=== PATIENT | female | born 1985 | race Caucasian/White ===

== ENCOUNTER 2017-03-14 13:04 | Inpatient (IN) | payer OTHER ==
[~2017-03-14] VITALS: Ht 160 cm; Wt 93.0 kg
[2017-03-14] MEDS ORDERED: PRENATAL TABLE1 EAC2 PO (14:04)
--- NOTE | 2017-03-14 14:19 | History & Physical ---
General Information and HPI MD Statement: I have seen and personally examined IGNACIO CAMPBELL and documented this H&P. The patient is a 32 year old female at [37] weeks and [1] days gestation who presented with a chief complaint of [OOL AND SROM CLEAR FLUID]. Source of Information: patient, old records Exam Limitations: no limitations History of Present Illness: 32 YO , LMP 06/27/2017 AND BOUCHRA 04/03/2017 PRESENTS 37 1/7 WKS WITH ONSET OF LABOR AND APPARENT SROM CLEAR FLUID. 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 History: none Medical History Blood Transfusion Hx: No Neurological: NONE EENT: NONE Cardiovascular: NONE Respiratory: NONE Gastrointestinal: NONE Hepatic: NONE Renal: H/O KIDNEY STONE- PASSED ON OWN, ALSO ASSOCIATED UTI Musculoskeletal: NONE Psychiatric: NONE Endocrine: NONE Blood Disorders: H/O FE DEF ANEMIA NONE IN Cancer(s): NONE INTRUSION ANALYST/Reproductive: NONE Surgical History Pertinent Surgical History: 2010 APPENDECTOMY Past Family/Social History Family History Relations & Conditions if any Relation not specified for: *No pertinent family history Psychosocial History Where do you live? Home Who Do You Live With? spouse, self Primary Language: Romanian Smoking Status: Former Smoker ETOH Use: denies use Illicit Drug Use: SMOKED POT BEFORE + UCG KNOWN Review of Systems Review of Systems: NEG FOR CARDIAC, PULMONARY, GI, COMPLANTS Exam & Diagnostic Data Obstetric Exam Wgt Gained During : 42 Pelvimetry: SHOULD BE ADEQUATE FOR AVGE SIZED BABY Dilation (cm): 8 Effacement (%): 100 Station: 1 Membranes: SROM Fluid: clear Fundal Height (cm): 36 Multiple Gestation? No Contractions: Q 2 TO 3 MIN Infant #1 - FHR Baseline: 140 Category: 1 Estimated Weight: 6#2 Presentation: VTX Patient for Induction? No Physical Exam General Appearance Alert, Oriented X3, Cooperative, Mild Distress Skin No Significant Lesion Cardiovascular Regular Rate Lungs Normal Air Movement Abdomen Normal Bowel Sounds, Soft, No Tenderness, No Hepatospenomegaly, GRAVID, FUNDAL HT 36 CM VTX, NONTENDER MOD CONTRACTIONS Q 2 TO 3 MIN VTX FHR 140' S Neurological Normal Gait, Normal Speech Extremities No Tenderness/Swelling Pelvic (FEMALE) Appearance Normal Labs Blood Type & Rh: B NEG Antibody Screen: NEG Hct/Hgb & Platelets #1: 12.8/37.6 236,000 Hct/Hgb & Platelets #2: 12.2/39.3 198,000 Rubella: NOT IMMUNE VDRL #1: N VDRL #2: N HbsAg: N HIV #1: N HIV #2 N 1 Hr P 3 Hr PG: N/A Group B Strep: NEG Initial Ultrasound: 08/24/2017 S=D=U/S 8WKS 2/7 DAYS Anatomy Ultrasound: 11/10/2016 S=D=U/S @ 19 2/7 WKS NL ANATOMY Ultrasound for EFW: 03/08/2017 VTX E F WT 5#15oz BPP / Genetic Testin09/23/2017 1ST TRIM SCREEN WNL CF NEG Last 24 Hrs of Labs/Sly: Laboratory Tests 03/14/17 1340: CBC w Diff Pending, WBC Pending, RBC Pending, Hgb Pending, Hct Pending, MCV Pending, MCH Pending, RDW Pending, Plt Count Pending, MPV Pending, PUBS MCHC Pending 03/14/17 1315: Membrane Rupture POSITIVE, Urinalysis HEAVY H, Urine Color PINK H, Urine Clarity CLDY H, Urine pH 7.5, Ur Specific [place] 1.020, Urine Protein 100 H, Urine Ketones NEG, Urine Nitrite NEG, Urine Bilirubin NEG, Urine Urobilinogen 0.2, Ur Leukocyte Esterase SMALL H, Ur Microscopic SEDIMENT EXAMINED, Urine RBC >75 H, Urine WBC 50-75 H, Ur Epithelial Cells MANY H, Urine Bacteria FEW H, Urine Mucus FEW, Urine Hemoglobin LARGE H, Urine Glucose NEG Assessment/Plan Assessment/Plan: STABLE - IUP @ 37 1/7 WKS ACTIVE LABOR AND SROM CLEAR FLUID 8 TO 9 CM DILATED - LIKELY "TOO LATE" FOR EPIDURAL, PT ACCEOTS TRIAL OF NITROUS OXIDE PLAN ANTICIPATE As Ranked By This Provider Problem List: 1. 2. SROM (spontaneous rupture of membranes) 3. Active labor at term Core Measures/Miscellaneous Venous Thromboembolism VTE Risk Factors: / VTE Contraindications: Active Bleeding VTE Diagnosis: No Beta Elisa Is Beta Elisa a Home Med? No If No, Why Not? N/A Antibiotics Is Patient on Antibiotics? No Attending MD Review Statement Attending Statement Attending MD Statement: examined this patient, discussed with family, reviewed EMR data (avail), discussed w/nursing Attending Assessment/Plan: Zacarias MANJARREZ
[2017-03-14 15:21] LABS: ABSOLUTE BASOPHIL COUNT 0.1 /CUMM (0.0-0.2); ABSOLUTE EOSINOPHIL COUNT 0 /CUMM (0.0-0.7); ABSOLUTE GRANULOCYTE CT 13.8 /CUMM (1.4-6.5); ABSOLUTE LYMPH COUNT 2.6 /CUMM (1.2-3.4); ABSOLUTE MONOCYTE COUNT 0.7 /CUMM (0.10-0.60); BASOPHIL % 0.3 % (0.0-2.0); EOSINOPHIL % 0.1 % (0-5); GRANULOCYTE % 80.7 % (42.2-75.2); HEMATOCRIT 40.9 % (37-47); MEAN CORPUSCULAR HGB 30.2 PG (27.0-31.0); MEAN CORPUSCULAR HGB CONC 33.6 G/DL (33.0-37.0); MEAN CORPUSCULAR VOLUME 89.7 FL (81.0-99.0); MEAN PLATELET VOLUME 12.7 FL (7.4-10.4); PLATELET COUNT 162 /CUMM (130-400); RBC DISTRIBUTION WIDTH 13.9 % (11.5-14.5); RED BLOOD CELL CT 4.56 /CUMM (4.20-5.40); WHITE BLOOD CELL COUNT 17.1 /CUMM (4.8-10.8)
--- NOTE | 2017-03-14 16:12 | PN- OBGYN ---
Surgical Brief Attending Note Brief Attending Note: PT PROGRESSED TO FULLEY AND BELIEVED THAT SHE HAD THE "URGE TO PUSH" EXAM - BABY @ ZERO STATION - SEVERAL ATTEMPTS @ PUSHING QUITE UNSUCCESSFUL DECISION MADE TO HAVE THE PT STOP PUSHING. CONTRACTION PATTERN NOW MORE IRREGULAR FHR REASSURING STOP PUSHING GET EPIDURAL PITOCIN AUGMENTATION ALLOW TO LABOR DOWN
--- NOTE | 2017-03-14 21:23 | Labor & Delivery Summary ---
Delivery Summary Vaginal Delivery: Vaginal: VACUUM APPLIED @ +2/+3 STATION DUE TO REPETITIVE PROLONGED JO. DECELLS Episiotomy/Lacerations: Episiotomy/Lacerations: LACERATION Type: 2ND MIDLINE Repair: 3-0 VYCRYL Anesthesia: EPIDURAL Placenta: Placenta: manual, FRAGMENTS 3 VC Anesthesia: EPIDURAL Cord PH Value: 7.12 Baby's Weight: 6#7 MALE "ZITA" Apgars - 1 Min: 4 Apgars - 5 Min: 6 Additional Comments: PT PRESENTED IN LABOR, WAS FOUND TO 8 CM. SHE WAS INTERESTED IN USING NITROUS OXIDE FOR PAIN RELIEF, AND SUCCESSFULLY PROGRESSED TO FULLY 0 STATION @ 14:55. AT THAT TIME. PT HAD THE URGE TO PUSH. VTX @ 0 STATION. PT WAS NOT PUSHING WELL, SO THIS EFFORT WAS STOPPED AFTER @ 4 TO 5 CONTRACTIONS. AT THIS TIME HER CONTRACTION PATTERN HAD SPACED OUT TO Q 3 TO5 MIN. DISCUSSED W/ PT NEED TO AUGMENT HER LABOR W/ PITOCIN AND THAT SHE SHOULD GET AN EPIDURAL TO HELP HER TOLERATE THE PITOCIN, AND TO HELP IN "LABORING DOWN". PT AGREED, EPIDURAL WAS PLACED AND IV PITOCIN WAS STARTED. FHR @ THIS TIME REMAINED 140-150 BASELINE WITH AVGE VARIABILTY AND NO DECELLS. @ 18:00 , PT HAD A TEMP OF 100.6, IV OFIRMEV WAS ADMINISTRATED. FHR BASELINE HAD SHIFTED TO 160-170"S BUT RETAINED AVERAGE VARIABILITY. DUE TO THE INCREASE IN BASELINE, DECISION WAS MADE TO BEGIN PUSHING AGAIN @ 18:47. ONCE PT BEGAN PUSHING THERE WERE REPETITIVE AND PROLONGED VARIABLE DECELLS ( DOWN TO 100 -120 WITH SLOW RECOVERY), PITOCIN WAS DISCONTINUED, MAT O2 ADMINISTERED, IVF BOLUS GIVEN, AND POSITION CHANGES WERE INITIATED. PEDI BACK UP WAS CALLED INTO THE HOSPITAL. NO IMPROVEMENT WITH THE DECELLS WITH PUSHING, DESPITE THESE MEASURES. DISCUSSED NEED FOR VACUUM SINCE PT COULD BRING THE VTX DOWN TO +2/+3, BUT THE 'S HEAD WAS NOT YET STAYING UNDER THE SYMPHYSIS. PT AND UNDERSTOOD AND AGREED TO THE VACUUM ATTEMPT. WITH ONE CONTRACTION AND A STEADY, SMOOTH PULL FOR < 10 SECONDS, THE INFANTS HEAD WAS EASILY DELIVERED OVER A SECOND DEGREE LACERATION. NO NUCHAL CORD AND THE WAS NO SHOULDER DYSTOCIA. DELIVERY @ 19:35. LV MALE 6#7oz, APGARS 4/6/8. CORD PH art 7.12. BABY'S COLOR DID NOT PINK UP, SO THE BABY WAS TAKEN TO THE NURSEY WITH THE DREW BURRIS ACTIVE MANAGENT OF THE 3RD STAGE OF LABOR (IV PITOCIN 40U/32580nm) WAS INITIATED WITH DELIVERY OF THE ANTERIOR SHOULDER, AND WE WAITED 30 MIN FOR SPONTANEOUS DELIVERY OF THE PLACENTA. SECOND DEGREE LACERATION WAS REPAIRED IN LAYERS. BY 20 :05 NO SIGNIFICANT VAG BLEEING WAS NOTED, AND VIGOROUS FINDAL MASSAGE AND STEADY TRACTION ON THE CORD DID NOT FACILITATE PLACENTAL DELIVERY. THE UMBILICAL SHREDDED OFF WITH ABOUT 1/4 OF THE PLACENTA. PT WAS GIVEN NITROUS AGAIN AND I EXPLAINED THE NEED FOR MANUAL REMOVAL OF THE PLACENTA AND LIKELY UTERINE CURETTAGE. PT AND HER WERE INFORMED THAT IF THERE WAS HEAVY BLEEDING WE WOULD HAVE TO GO TO THE L/D OPERATIVE SUITE FOR MORE AGGRESSIVE MANGEMENT THAT MAY INVOLVE A BAKRI BALLOON OR EVEN A HYSTERECTOMY. ANESTHESIA CALLED TO THE UNIT, BACK UP OB MD ALSO CALLED INTO THE HOSPITAL AND PT WAS GIVEN IV TORADOL AND IN KEFZOL (2 GM X 1). EPIDURAL WAS TOPPED OFF, AND SHE WAS USING THE NITROUS BY HAND HELD MASK, AND PT TOLERATED 5 ATEMPTS OF MANUAL REMOVAL ALTERNATING WITH CURETTAGE W/ HANNAH/BANJO CURETTE. 2/3 PORTION OF THE PLACENTA DENSELY ADHERANT IN RT CORNU. THIS WAS FINALLY LOOSED UP AND FULLY EXTRACTED, FINAL CURETTAGE- NO RESIDUAL / TISSUE OR MEMBRANES. NO SIGNIFICANT BLEEDING THROUGHOUT THIS PROCESS. THIS WAS COMPLETED BY 20:35. SECOND DEGREE LAC REPAIR REMAINED INTACT. NO VAGINAL OR CERVICAL LACERATIONS. PRADHAN CATHETER REMAINED SINCE EPIDURAL PLACEMENT. RPADHAN REMAINED DRAINING CLEAR URINE. FOLLOWING REMOVAL OF THE PLACENTA, PT LOOKED GREAT- BRIGHT, GOOD SPIRITS AND GOOD COLOR. TEMP 99.5, P89. R 16 BP 120/72, 500 ML CLEAR URINE FOR LAST 2 HRS. BABY WAS STABLE IN THE NURSERY, CXR FLUID IN LUNG - NO INFILTRATE, 50% 02 IN OXYHOOD. DECISION TO TRANSFER THE BABY TO REPLACED BY [facility] N[facility] FOR LIKELY CPAP. MATERNAL TRANSFER OF THE PT ARRANGED FOR HER TO BE WITH HER BABY
--- NOTE | 2017-03-14 22:40 | Discharge Summary ---
Visit Information Visit Dates Admission Date: 03/14/17 Discharge Date: 03/14/2017 Hospital Course Course Attending Physician: CT MANJARREZ MD Primary Care Physician: CT MANJARREZ MD Hospital Course: PT PRESENTED IN LABOR, WAS FOUND TO 8 CM. SHE WAS INTERESTED IN USING NITROUS OXIDE FOR PAIN RELIEF, AND SUCCESSFULLY PROGRESSED TO FULLY 0 STATION @ 14:55. AT THAT TIME. PT HAD THE URGE TO PUSH. VTX @ 0 STATION. PT WAS NOT PUSHING WELL, SO THIS EFFORT WAS STOPPED AFTER @ 4 TO 5 CONTRACTIONS. AT THIS TIME HER CONTRACTION PATTERN HAD SPACED OUT TO Q 3 TO5 MIN. DISCUSSED W/ PT NEED TO AUGMENT HER LABOR W/ PITOCIN AND THAT SHE SHOULD GET AN EPIDURAL TO HELP HER TOLERATE THE PITOCIN, AND TO HELP IN "LABORING DOWN". PT AGREED, EPIDURAL WAS PLACED AND IV PITOCIN WAS STARTED. FHR @ THIS TIME REMAINED 140-150 BASELINE WITH AVGE VARIABILTY AND NO DECELLS. @ 18:00 , PT HAD A TEMP OF 100.6, IV OFIRMEV WAS ADMINISTRATED. FHR BASELINE HAD SHIFTED TO 160-170"S BUT RETAINED AVERAGE VARIABILITY. DUE TO THE INCREASE IN BASELINE, DECISION WAS MADE TO BEGIN PUSHING AGAIN @ 18:47. ONCE PT BEGAN PUSHING THERE WERE REPETITIVE AND PROLONGED VARIABLE DECELLS ( DOWN TO 100 -120 WITH SLOW RECOVERY), PITOCIN WAS DISCONTINUED, MAT O2 ADMINISTERED, IVF BOLUS GIVEN, AND POSITION CHANGES WERE INITIATED. PEDI BACK UP WAS CALLED INTO THE HOSPITAL. NO IMPROVEMENT WITH THE DECELLS WITH PUSHING, DESPITE THESE MEASURES. DISCUSSED NEED FOR VACUUM SINCE PT COULD BRING THE VTX DOWN TO +2/+3, BUT THE 'S HEAD WAS NOT YET STAYING UNDER THE SYMPHYSIS. PT AND UNDERSTOOD AND AGREED TO THE VACUUM ATTEMPT. WITH ONE CONTRACTION AND A STEADY, SMOOTH PULL FOR < 10 SECONDS, THE INFANTS HEAD WAS EASILY DELIVERED OVER A SECOND DEGREE LACERATION. NO NUCHAL CORD AND THE WAS NO SHOULDER DYSTOCIA. DELIVERY @ 19:35. LV MALE 6#7oz, APGARS 4/6/8. CORD PH art 7.12. BABY'S COLOR DID NOT PINK UP, SO THE BABY WAS TAKEN TO THE NURSEY WITH THE PEDI PA ACTIVE MANAGENT OF THE 3RD STAGE OF LABOR (IV PITOCIN 40U/[id number]) WAS INITIATED WITH DELIVERY OF THE ANTERIOR SHOULDER, AND WE WAITED 30 MIN FOR SPONTANEOUS DELIVERY OF THE PLACENTA. SECOND DEGREE LACERATION WAS REPAIRED IN LAYERS. BY 20 :05 NO SIGNIFICANT VAG BLEEING WAS NOTED, AND VIGOROUS FINDAL MASSAGE AND STEADY TRACTION ON THE CORD DID NOT FACILITATE PLACENTAL DELIVERY. THE UMBILICAL SHREDDED OFF WITH ABOUT 1/4 OF THE PLACENTA. PT WAS GIVEN NITROUS AGAIN AND I EXPLAINED THE NEED FOR MANUAL REMOVAL OF THE PLACENTA AND LIKELY UTERINE CURETTAGE. PT AND HER WERE INFORMED THAT IF THERE WAS HEAVY BLEEDING WE WOULD HAVE TO GO TO THE L/D OPERATIVE SUITE FOR MORE AGGRESSIVE MANGEMENT THAT MAY INVOLVE A BAKRI BALLOON OR EVEN A HYSTERECTOMY. ANESTHESIA CALLED TO THE UNIT, BACK UP OB MD ALSO CALLED INTO THE HOSPITAL AND PT WAS GIVEN IV TORADOL AND IN KEFZOL (2 GM X 1). EPIDURAL WAS TOPPED OFF, AND SHE WAS USING THE NITROUS BY HAND HELD MASK, AND PT TOLERATED 5 ATEMPTS OF MANUAL REMOVAL ALTERNATING WITH CURETTAGE W/ HANNAH/BANJO CURETTE. 2/3 PORTION OF THE PLACENTA DENSELY ADHERANT IN RT CORNU. THIS WAS FINALLY LOOSED UP AND FULLY EXTRACTED, FINAL CURETTAGE- NO RESIDUAL / TISSUE OR MEMBRANES. NO SIGNIFICANT BLEEDING THROUGHOUT THIS PROCESS. THIS WAS COMPLETED BY 20:35. SECOND DEGREE LAC REPAIR REMAINED INTACT. NO VAGINAL OR CERVICAL LACERATIONS. PRADHAN CATHETER REMAINED SINCE EPIDURAL PLACEMENT. PRADHAN REMAINED DRAINING CLEAR URINE. Allergies: Coded Allergies: No Known Allergies (03/14/17) Significant Procedures: VACUUM DELIVERY LIVE MALE REPAIR SEOND DEGREE LACERATION MANUAL REMOVAL AND UTERINE CURRETTAGE Pertinent Lab Results: CBC 13.8/40.9 162,00 ON ADMISSION Disposition Summary Disposition Principal Diagnosis: TERM LIVE CHILD DELIVERED Additional Diagnosis: NON-REASSURING HEART RATE VACUUM DELIVERY RETAINED PLACENTA MANUAL AND SHARP CURETTAGE REPAIR 2ND LACERATION Discharge Disposition: other general hospital Discharge Instructions General Discharge Information Code Status: Full Code Patient's Diet: REG Patient's Activity: SELF LIMITED Follow-Up Instructions/Appts: ONCE D/C ED FROM [facility] SEE US @ 2 AND 6 WKS PP Medications at Discharge Discharge Medications: Continue taking these medications: Vit No.130/Iron/FA ( Tablet) 27 MG IRON-800 MCG TABLET 1 Tablet ORAL DAILY Start taking the following new medications: Ibuprofen (Ibuprofen) 800 MG TABLET 800 Milligram ORAL EVERY SIX HOURS NEEDED as needed for UTERINE CRAMPING Qty = 60 Refills = 6 Copies To: JOSSELINE ROMERO,CT [place]
[2017-03-14] MEDS ORDERED: IBUPROFEN800 M1 PO (22:51)
== END 2017-03-14 23:15 | disposition short-term general hospital (02) | DRG 774 ==
LOC: CBCO 13:04 → GNO 13:32
PROVIDERS: ADMIT Obstetrics & Gynecology
DX: O73.1 Retained portions of placenta and membranes, without hemorrhage (principal); Z37.0 Single live birth; O70.1 Second degree perineal laceration during delivery; Z3A.37 37 weeks gestation of pregnancy
CPT/HCPCS: GNOP; 36415; 80307; 81001; 84112; 86920; 86922; 87086; 88307; J0131; J0690; J1885; J2210; J7120